=== PATIENT | male | born 1955 | race Caucasian/White ===

== ENCOUNTER 2023-01-01 07:41 | Outpatient (CLI) | payer MEDICARE, SELFPAY ==
--- NOTE | ~2023-01-01 | MR_ITS ---
EXAMINATION: MR abdomen wo/w con DATE: 01/01/2023 08:43 INDICATION: Splenic lesion TECHNIQUE: Magnetic resonance imaging (MRI) of the abdomen was performed without and with 17 mL Multi saundra intravenous contrast. Sequences included coronal T2-weighted SS-FSE, coronal and axial FS 2D-F IESTA, axial STIR FSE, axial T2-weighted SS-FSE, axial T2-weighted FS SS-FSE, axial diffusion-weighte d SE, axial dual-echo T1-weighted FSPGR, and axial and coronal T1-weighted LAVA. Postcontrast axial T 1-weighted LAVA images were obtained in a time course. Postcontrast coronal T1-weighted LAVA images w ere obtained. COMPARISON: None. FINDINGS: Heart size is normal. No pericardial or pleural effusion. Liver, gallbladder, pancreas, bilateral adr enal glands and right kidney are normal. 5 mm T2 hyperintense nonenhancing cyst at the lower pole of the left kidney. Nonspecific splenomegaly measuring 14.8 cm in maximal length without discrete spleni c lesion. Visualized portions of bowels are unremarkable with no obstruction. Normal appendix. No pat hologically enlarged abdominal lymphadenopathy. Small fat-containing umbilical hernia. Mild lumbar le vocurvature with mild spondylosis. Normal bone marrow signal throughout. IMPRESSION: 1. Nonspecific mild splenomegaly. No discrete splenic lesions identified. Reviewed, dictated and finalized at location A.
== END 2023-01-01 07:42 | disposition home or self-care (01) ==
PROVIDERS: PCP Internal Medicine; Visit Provider Internal Medicine Hematology & Oncology
DX: D73.89 Other diseases of spleen (principal)
CPT/HCPCS: 74183; A9577